=== PATIENT | female | born 1970 | race Caucasian/White ===

== ENCOUNTER 2017-01-24 17:00 | Emergency (ER) | payer MEDICAID ==
[~2017-01-24] VITALS: Ht 172.7 cm; Wt 103.4 kg
[2017-01-24 17:06] VITALS: BP 138/53
[2017-01-24] MEDS ORDERED: BACITRACIN-POLYMYXIN B TOPICAL OINT UD TOP ONE (20:42)
[2017-01-24] MEDS ORDERED: BACITRACIN TOP OINT 1 UD PKG TOP ONE (21:00)
[2017-01-24] MEDS ORDERED: LIDOCAINE 2%HCL (LOCAL ANESTH.) INJ 20ML MDV IJ ONE (21:00)
== END 2017-01-24 21:52 | disposition home or self-care (01) ==
LOC: ER 17:21
DX: S51.811A Laceration without foreign body of right forearm, initial encounter (principal); W54.0XXA Bitten by dog, initial encounter; Y93.89 Activity, other specified; Y99.8 Other external cause status; Y92.89 Other specified places as the place of occurrence of the external cause
CPT/HCPCS: 12004